=== PATIENT | female | born 1960 | race African-American/Black ===

== ENCOUNTER 2021-04-07 07:40 | Outpatient (CLI) | payer OTHER, SELFPAY ==
--- NOTE | ~2021-04-07 | DEXA_ITS ---
Bone Density Report Name: Concha Morrison Age: 60 Sex: Female Ethnicity: White Date of : 1960 Indication: osteopenia; height loss; cancer; Referring Provider: Sun Pinedo Study: Bone densitometry was performed. Exam Date: April 07, 2021 Accession number: [id number] Bone Density: Region BMD T-score Z-score Classification AP Spine (L1-L4) 1.088 0.4 2.0 Normal Femoral Neck (Left) 0.960 1.0 2.4 Normal Total Hip (Left) 1.080 1.1 2.2 Normal Total Hip Bilateral Avg 1.059 1.0 2.1 Normal Femoral Neck (Right) 0.890 0.4 1.8 Normal Total Hip (Right) 1.036 0.8 1.9 Normal World Health Organization criteria for BMD impression classify patients as: Normal (T-score at or above -1.0), Osteopenia (T-score between -1.0 and -2.5), or Osteoporosis (T-score at or below -2.5). 10-year Fracture Risk: FRAX not reported because: All T-scores for Spine Total, Hip Total, Femoral Neck at or above -1.0 Previous Exams: Region Exam Age BMD T-score BMD Change BMD Change Date g/cm2 vs Baseline vs Previous AP Spine(L1-L4) 04/07/2021 60 1.088 0.4 0.228(26.5%)# 0.219(25.3%)# 08/15/2011 50 0.868 -1.6 0.008(0.9%) 0.008(0.9%) 11/05/2008 48 0.860 -1.7 Total Hip(Left) 04/07/2021 60 1.080 1.1 0.269(33.1%)# 0.279(34.8%)# 08/15/2011 50 0.801 -1.2 -0.011(-1.3%) -0.011(-1.3%) 11/05/2008 48 0.812 -1.1 Total Hip(Right) 04/07/2021 60 1.036 0.8 0.223(27.4%)# 0.227(28.0%)# 08/15/2011 50 0.809 -1.1 -0.004(-0.5%) -0.004(-0.5%) 11/05/2008 48 0.813 -1.1 *Denotes significance at 95% confidence level, LSC for AP Spine = 0.022 g/cm2, LSC for Total Hip = 0.027 g/cm2 Clinical Information Provided by Patient: Has used the following medications: Vitamin D Has the following medical conditions: Cancer Patient maximum height was 64 Menopause Age: 48 Drinks caffeinated beverages Onset of menses at age 10 Number of children 2 Impression: The patient has normal bone mass. No significant bone loss was observed. Discussion: BONE DENSITY IS ABOVE THE MINIMUM DESIRABLE LEVEL AT ALL SKELETAL SITES TESTED. This patient?s bone mineral density is above the minimum desirable level (T-score -1.0 or better) at all sites measured. The patient should follow a healthful lifestyle (good nutrition with adequate calcium and vitamin D, and appropriate weight-bearing exercise). Follow-Up: Consider repeating this study in 5 years or sooner if there i
--- NOTE | ~2021-04-07 | MM_ITS ---
EXAMINATION: MM screening [facility] BI w keith HISTORY: Screening mammogram, history of right breast cancer TECHNIQUE: Craniocaudal and mediolateral oblique 3-D tomosynthesis images were obtained and synthetic 2-D images were generated. CAD analysis was submitted and interpreted. COMPARISON: 03/13/2019, 03/06/2019, 05/24/2017 BREAST PARENCHYMAL COMPOSITION: There are scattered areas of fibroglandular density. FINDINGS: There are changes of interval lumpectomy in the upper right breast. There is no evidence of suspicious mass, calcification, or architectural distortion to suggest malignancy in either breast. There has been no suspicious interval change. IMPRESSION: 1. Changes of interval lumpectomy of the right breast without mammographic evidence of malignancy. 2. Recommend routine screening mammography in one year. BI-RADS Category 2: Benign finding(s). Reviewed, dictated and finalized at location A. IMPRESSION: 1. Changes of interval lumpectomy of the right breast without mammographic evid ence of malignancy. 2. Recommend routine screening mammography in one year. BI-RADS Category 2: Benign finding(s).
== END 2021-04-07 07:41 | disposition home or self-care (01) ==
PROVIDERS: Visit Provider Obstetrics & Gynecology
DX: Z12.31 Encounter for screening mammogram for malignant neoplasm of breast (principal); Z78.0 Asymptomatic menopausal state
CPT/HCPCS: 77063; 77067; 77080

== ENCOUNTER 2025-05-14 12:14 | Outpatient (CLI) | payer MEDICARE, SELFPAY ==
--- NOTE | ~2025-05-14 | DEXA_ITS ---
Bone Density Report Name: HAL FORRESTER Age: 64 Sex: Female Ethnicity: White Date of : 1960 Indication: postmenopausal; screening for osteoporosis; height loss; Referring Provider: DIEGO, NEEL García Study: Bone densitometry was performed. Exam Date: May 14, 2025 Accession number: [id number] Bone Density: Region BMD T-score Z-score Classification AP Spine(L1-L4) 1.093 0.4 2.3 Normal Femoral Neck (Left) 0.887 0.3 1.9 Normal Total Hip (Left) 1.083 1.2 2.5 Normal Femoral Neck (Right) 0.902 0.5 2.1 Normal Total Hip (Right) 1.080 1.1 2.4 Normal Femoral Neck Mean 0.894 0.4 2.0 Normal Total Hip Mean 1.082 1.1 2.5 Normal World Health Organization criteria for BMD impression classify patients as: Normal (T-score at or above -1.0), Osteopenia (T-score between -1.0 and -2.5), or Osteoporosis (T-score at or below -2.5). 10-year Fracture Risk: FRAX not reported because: All T-scores for Spine Total, Hip Total, Femoral Neck at or above -1.0 Clinical Information Provided by Patient: Has used the following medications: Vitamin D, multi Patient maximum height was 64 Menopause Age: 48 No regular weight bearing exercise Drinks caffeinated beverages Onset of menses at age 10 Number of children 2 Impression: The patient has normal bone mass. Discussion: BONE DENSITY IS ABOVE THE MINIMUM DESIRABLE LEVEL AT ALL SKELETAL SITES TESTED. This patient?s bone mineral density is above the minimum desirable level (T-score -1.0 or better) at all sites measured. The patient should follow a healthful lifestyle (good nutrition with adequate calcium and vitamin D, and appropriate weight-bearing exercise). Follow-Up: Consider repeating this study in 5 years or sooner if there is some new clinical indication. Reported by: CARLOS on 05/14/2025 12:45:00 PM. Reviewed, dictated and finalized at location A.
--- OUTSIDE RECORDS SUMMARY | 2025-05-14 12:45 | XMS_ITS | Encounter Summary ---
Author Organization [facility] Address [address] [place] [address] Care Team Providers Care Tax Services Professional Name Role Phone Kyung Kim NP Primary Care Provider [phone] Encounter Details Date Type Department Care Team (Latest Contact Info) Description 05/07/2025 Scan HEALTH INFO SRVCS Scanned, Doc Med Group Social History Tobacco Use Types Packs/Day Years Used Date Smoking Tobacco: Never Passive Smoke Exposure: Past Smokeless Tobacco: Never Alcohol Use Standard Drinks/Week Comments Not Currently 0 (1 standard drink = 0.6 oz pur e alcohol) few times per year AUDIT-C Answer Date Recorded Q1: How often do you have a drink containing alc ohol? Monthly or less 02/23/2025 Q2: How many drinks containi ng alcohol do you have on a typical day when you are drinking? 1 or 2 02/23/2025 Q3: How often do you have si x or more drinks on one occasion? Never 02/23/2025 PHQ-2 Answer Date Recorded Patient Health Questionnaire-2 Score 0 02/23/2025 Comments No Sex and Gender Information Value Date Recorded Sex Assigned at Female 04/13/2025 9:00 AM CDT Legal Sex Female 8:03 PM CDT Gender Identity Female 04/13/2025 9:00 AM CDT Sexual Orientation Not on file documented as of this encounter Plan of Treatment Upcoming Encounters Date Type Department Care Team ( st Contact Info) Description 08/03/2025 8:00 AM CDT Office Visit [facility] Family Medicine [place] [address] [place], [place] [address] Kyung Kim, MEME [address] [place] [address] 03/02/2026 8:30 AM CDT Office Visit [facility] Family Medicine - [place] [address] [place] [address] Kyung Kim NP [address] [place] [address] documented as of this encounter Visit Diagnoses Not on filedocumented in this encounter Additional Health Concerns Assessment Noted Time PHQ-9 Depression Total Score: 0 02/24/20 25 6:06 PM CDT documented as of this encounter Care Teams Tax Services Professional Relationship Specialty Start Date End Date Kyung Kim NP [address] [place] [address] PCP - General NURSE PRACTITIONER 04/19/21 [facility] [address] [place] [address] GYNECOLOGY 02/22/25 documented as of this encounter
--- OUTSIDE RECORDS SUMMARY | 2025-05-14 12:45 | XMS_ITS | Clinical Summary ---
Author Organization [facility] Address [address] [place] [address] Care Team Providers Care Lsw Name Role Phone Anselmo Choi MD Unavailable Ramya Andrade PhD Unavailable Aft, Susie Gaspar MD PhD Unavailable [phone] Marta Everett JAIL GUARD Unavailable [phone] Sun Nino MD Unavailable [phone] Kyung Kim MD Primary Care Provider [phone] Allergies No known active allergies Medications aspirin 81 mg enteric coated tablet Take 1 tablet (81 mg total) by mouth daily Active multivitamin capsule Take 1 capsule by mouth daily Active Bacillus coagulans (PROBIOTIC, B. 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 05/25/2019 Cancer Staging:Pathologic stage from 06/26/2019:Stage 0(pTis (DCIS), pN0, cM0, G3, ER-, WA-, HER2: Not Assessed) - Signed by Anselmo Choi MD on 07/25/2019 Abnormal mammogram 04/02/2019 Encounters Date Type Department Care Team Description 05/04/2025 1:24 PM CDT - 05/04/2025 11:59 PM CDT Hospital Encounter [facility] - Breast Imaging [address] [place] [id number] Breast asymmetry Discharge Disposition: Discharge to home or self care 05/04/2025 1:24 PM CDT - 05/04/2025 11:59 PM CDT Hospital Encounter [facility] - Breast Imaging [address] [place] [address] Breast asymmetry Discharge Disposition: Discharge to home or self care 05/04/2025 Results Follow-Up [facility] [address] [place] [phone] Deborah Gallagher NP Diagnostic Mammogram Left W Abel, US Breast Left Limited 04/30/2025 Orders Only [facility] [address] [place] [phone] Deborah Gallagher NP Breast asymmetry (Primary Dx) 04/30/2025 Results Follow-Up [facility] [address] [place] [phone] Deborah Gallagher NP Screening Mammogram Bilateral W Abel 04/29/2025 10:00 AM CDT - 04/29/2025 11:59 PM CDT Hospital Encounter [facility] - Breast Imaging [address] [place] [phone] Screening mammogram for breast cancer; History of breast cancer; Encounter for screening mammogram for malignant neoplasm of breast Discharge Disposition: Discharge to home or self care 04/29/2025 9:45 AM CDT Office Visit [facility] [address] [place] [phone] Deborah Gallagher, MEME 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); History of breast cancer; Encounter for screening mammogram for malignant neoplasm of breast from Last 3 Months Immunizations Immunization Administration Dates Next Due Influenza, Quadrivalent, Neelam l Culture-based MDCK, Antibiotic Free, Intramuscular 10/10/2019 Influenza, Quadrivalent, Neelam l Culture-based MDCK, Preservative Free, Antibiotic Free, Intramuscular 07/27/2020 Influenza, Trivalent, Cell C ulture-based MDCK, Preservative Free, Antibiotic Free, Intramuscular 10/10/2019 Influenza, Unspecified 09/07/2022,09/07/2021 Moderna SARS-CoV-2 Monovalent Vaccination (12+ Y RS) 03/01/2021,02/01/2021 Pneumococcal Conjugate Pcv20 01/29/2024 Tdap 02/09/2016 ZOSTER Recombinant 05/30/2019,03/06/2019 Surgical History Surgery Date Site/Laterality Comments APPENDECTOMY 11/26/1980 - 11/25/1981 BREAST BIOPSY 04/28/2019 Right BREAST LUMPECTOMY 06/26/2019 Right Right breast grade 3 DCIS excised with negative margins. D&C FIRST TRIMESTER / TX INCOMPLETE / MISSED / SEPTIC / INDUCED N/A COLONOSCOPY Medical History Medical History Date Comments Overweight Diverticulitis of colon 2017 Right Breast cancer- DCIS 2019 DCIS History of radiation therapy 2019 RT DCIS BRCA1 negative BRCA2 negative Family History Medical History Relation Name Comments Diabetes Father Family history of diabetes mellitus - (Added by TW Conv) Lung cancer Father Family history of lung cancer - (Added by TW Conv) Breast cancer Mother Family history of malignant neoplasm of breast - (Added by TW Conv) Breast cancer Other 1 Family history of malignant neoplasm of breast - (Added by TW Conv) Diabetes Other 2 Family history of diabetes mellitus - (Added by TW Conv) Lung cancer Other 3 Family history of lung cancer - (Added by TW Conv) Breast cancer Paternal cousin Anesthesia problems Neg Hx Heart disease Neg Hx Stroke Neg Hx Relation Name Status Comments Father Mother Other 1 Other 2 Other 3 Paternal cousin Social History Tobacco Use Types Packs/Day Years Used Date Smoking Tobacco: Never Passive Smoke Exposure: Never Smokeless Tobacco: Never Tobacco Cessation:Counseling Given: Not Answered Alcohol Use Standard Drinks/Week Comments Not Currently 0 (1 standard drink = 0.6 oz pur e alcohol) Comments No Sex and Gender Information Value Date Recorded Sex Assigned at Not on file 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 Age of 1st live 19. Menopause at age 49. History of control pills for 1 year. No history of hormone replacement therapy. Last Filed Vital Signs Vital Sign Reading Time Taken Comments Blood Pressure 143/75 07/29/2024 9:57 AM CDT Pulse 57 07/29/2024 9:57 AM CDT Temperature 36.3 C (97.3 F) 07/29/2024 9:57 AM CDT Respiratory Rate 18 07/29/2024 9:57 AM CDT Oxygen Saturation 100% 07/29/2024 9:57 AM CDT Inhaled Oxygen Concentration - - Weight 100.5 kg (221 lb 9.6 oz) 04/29/2025 9:51 AM CDT Height 157.5 cm (5' 2.01) 04/29/2025 9:51 AM CD T Body Mass Index 40.52 04/29/2025 9:51 AM CDT Plan of Treatment Health Maintenance Due Date Last Done Comments Depression Screening 1960 Fall Risk Assessment 1960 Hepatitis C Screening 1960 Osteoporosis Screening-Bone Density Scan 1960 Hepatitis B Screening 1976 Well Visit 65+ 2023 Covid-19 Vaccine (3 - 2023-2 5 season) 2024 03/01/2021, 02/01/2021 Breast Cancer Screening-Mammogram 04/29/2026 04/29/2025, 04/25/2024, 04/24/2023, Additional history exists Colon Cancer Screening-Colonoscopy 06/12/2027 06/12/2017 DTaP/Tdap/Td Vaccine (3 - Td or Tdap) 09/23/2034 09/23/2024, 02/09/2016 Colon Cancer Screening-CT Colonography Discontinued 06/12/2017 Colon Cancer Screening-DNA Stool Discontinued 06/12/20 17 Colon Cancer Screening-FIT Discontinued 06/12/2017 Colon Cancer Screening-Sigmoidoscopy Discontinued 06/12/2017 Zoster Vaccine Completed 05/30/2019, 03/06/2019 Pneumococcal vaccine 65+ Completed 01/29/2024 Influenza Vaccine Completed 09/20/2024, , 09/07/2022, Additional history exists Medical Devices Implanted Type Area Product Development Intern Device Identifier Shelf Expiration Date Model / Serial / Lot Right Breast Biposy Marker Breast Procedures Procedure Name Priority Date/Time Associated Diagnosis Comments US BREAST LEFT LIMITED Schedule Routine, Read Routine (OP Routine) 05/04/2025 2:20 PM CDT Breast asymmetry DIAGNOSTIC MAMMOGRAM LEFT W ABEL Schedule Routine, Read Routine (OP Routine) 05/04/2025 2:12 PM CDT Breast asymmetry SCREENING MAMMOGRAM BILATERAL W ABEL Schedule Routine, Read Routine (OP Routine) 04/29/2025 10:42 AM CDT Screening mammogram for breast cancer COLONOSCOPY REPORT 06/12/2017 from Last 3 Months or Most Recently Relevant to Health Maintenance Results * US Breast Left Limited (05/04/2025 2:20 PM CDT) Anatomical Region Laterality Modality Breast Left Ultrasound 05/04/2025 2:37 PM CDT Impressions 05/04/2025 3:06 PM CDT LEFT breast focal asymmetry correlates with benign cysts. No evidence of malignancy in the LEFT breast. OVERALL FINAL ASSESSMENT: BI-RADS Category 2: Benign. RECOMMENDATION: Annual screening mammography is recommended. Dr. Graham discussed the above findings and recommendations with the patient, who expressed her understanding of the management plan. Dictated by: Gregory Guevara MD The radiology attending physician has personally reviewed this study, and had reviewed and/or edited this written report and agrees with it. Electronically signed by: Trish Graham M.D. Narrative 05/04/2025 3:06 PM CDT EXAMINATION: LEFT UNILATERAL DIGITAL DIAGNOSTIC MAMMOGRAM AND DIGITAL BREAST TOMOSYNTHESIS; LEFT BREAST SONOGRAM HISTORY: 64-year-old woman recalled for LEFT breast focal asymmetry. Prior RIGHT breast ductal carcinoma in situ status post breast conservation therapy in 2019. COMPARISON: Multiple priors, most recently screening mammogram 04/29/2025 TECHNIQUE: Full field digital mammographic views of the LEFT breast were performed, including computer aided detection (CAD) and digital breast tomosynthesis (DBT). Directed ultrasound evaluation of the LEFT breast was performed. BREAST PARENCHYMAL COMPOSITION: There are scattered areas of fibroglandular density. MAMMOGRAM FINDINGS: Again seen is a focal asymmetry in the LEFT upper outer breast at posterior depth adjacent to a previously characterized cyst. This partially effaces on spot compression view. This area appears similar to remote prior mammograms, such as 03/27/2022. SONOGRAM FINDINGS: Targeted ultrasound was performed of the LEFT breast at 2:00, 9 cm from the nipple. Correlating with the focal asymmetry on mammograms is a cluster of benign cysts. These are in close proximity to another benign cyst at 3:00, which is mammographically stable. Deborah Gallagher NP IMG MAMMO PROCEDURES Final Result * Diagnostic Mammogram Left W Abel (05/04/2025 2:12 PM CDT) Anatomical Region Laterality Modality Breast Left Mammography 05/04/2025 2:37 PM CDT Impressions 05/04/2025 3:06 PM CDT LEFT breast focal asymmetry correlates with benign cysts. No evidence of malignancy in the LEFT breast. OVERALL FINAL ASSESSMENT: BI-RADS Category 2: Benign. RECOMMENDATION: Annual screening mammography is recommended. Dr. Graham discussed the above findings and recommendations with the patient, who expressed her understanding of the management plan. Dictated by: Gregory Guevara MD The radiology attending physician has personally reviewed this study, and had reviewed and/or edited this written report and agrees with it. Electronically signed by: Trish Graham M.D. Narrative 05/04/2025 3:06 PM CDT EXAMINATION: LEFT UNILATERAL DIGITAL DIAGNOSTIC MAMMOGRAM AND DIGITAL BREAST TOMOSYNTHESIS; LEFT BREAST SONOGRAM HISTORY: 64-year-old woman recalled for LEFT breast focal asymmetry. Prior RIGHT breast ductal carcinoma in situ status post breast conservation therapy in 2019. COMPARISON: Multiple priors, most recently screening mammogram 04/29/2025 TECHNIQUE: Full field digital mammographic views of the LEFT breast were performed, including computer aided detection (CAD) and digital breast tomosynthesis (DBT). Directed ultrasound evaluation of the LEFT breast was performed. BREAST PARENCHYMAL COMPOSITION: There are scattered areas of fibroglandular density. MAMMOGRAM FINDINGS: Again seen is a focal asymmetry in the LEFT upper outer breast at posterior depth adjacent to a previously characterized cyst. This partially effaces on spot compression view. This area appears similar to remote prior mammograms, such as 03/27/2022. SONOGRAM FINDINGS: Targeted ultrasound was performed of the LEFT breast at 2:00, 9 cm from the nipple. Correlating with the focal asymmetry on mammograms is a cluster of benign cysts. These are in close proximity to another benign cyst at 3:00, which is mammographically stable. Deborah Gallagher NP IMG MAMMO PROCEDURES Final Result * (ABNORMAL) Screening Mammogram Bilateral W Abel (04/29/2025 10:42 AM CDT) Anatomical Region Laterality Modality Breast Bilateral Mammography Impressions 04/30/2025 9:09 AM CDT Left 1) Focal Asymmetry: Left breast focal asymmetry in the upper outer quadrant in the posterior depth. Assessment: 0 - Incomplete. Diagnostic mammogram with possible ultrasound is recommended. Right No evidence of malignancy. OVERALL BI-RADS FINAL ASSESSMENT: 0 - Incomplete: Needs Additional Imaging Evaluation RECOMMENDATIONS: Recommend left breast diagnostic mammogram with possible ultrasound. Narrative 04/30/2025 9:09 AM CDT EXAMINATION: Screening Mammogram Bilateral W Abel: 04/29/2025 COMPARISON: Relevant prior studies available at the time of interpretation were reviewed. Multiple prior mammograms dating back to 05/18/2015, most recent from 05/26/2024. Left breast ultrasound from 05/26/2024. TECHNIQUE: Mammography was performed with 2D and digital breast tomosynthesis (DBT) images. CAD was utilized. BREAST PARENCHYMAL COMPOSITION: There are scattered areas of fibroglandular density. FINDINGS: Left 1) Focal Asymmetry: There is a focal asymmetry seen in the upper outer quadrant of the left breast in the posterior depth. This finding needs additional imaging evaluation. Right 2) Post-Surgical Finding: There are post-surgical findings from a previous lumpectomy seen in the right breast. Compared to the previous study, there are no significant changes. There has been no interval development of a suspicious finding. This finding is benign. There is no suspicious mass, calcification, or architectural distortion. Deborah Gallagher NP IMG MAMMO PROCEDURES Final Result * COLONOSCOPY REPORT (06/12/2017) Anatomical Region Laterality Modality Other Provider Scanning GI PROCEDURE ORDERABLES Final Result from Last 3 Months or Most Recently Relevant to Health Maintenance Insurance [facility] MEDICARE ADVANTAGE [facility] MEDICARE Address: [address] [address] [place] [address] [facility]S [facility] MEDICARE ADVANTAGE [facility] MEDICARE Address: [id number] [place] [address] Care Teams Lsw Relationship Specialty Start Date End Date Kyung Kim MD [address] [place] [address] PCP - General Nurse Practitioner 03/27/22 Anselmo Choi MD [address] [place] [address] Radiation Oncologist Radiation Oncology 06/28/20 Ramya Andrade, PhD [address] [place] [address] Nurse Practitioner Radiation Oncology 06/28/20 Susie Cm MD PhD [address] [place] [address] Surgeon Surgical Oncology 06/28/20 Marta Everett CNS [address] [place] [address] Nurse Practitioner Certified Clinical Nurse Specialist 06/28/20 Sun Nino MD [address] [place] [address] Medical Oncologist/Emergency Management Specialist Hematology 06/28/20
--- OUTSIDE RECORDS SUMMARY | 2025-05-14 12:45 | XMS_ITS | Referral Summary ---
Author Organization [facility] Address [address] [place] [address] Care Team Providers Care Resaw Operator Name Role Phone Anselmo Choi MD Unavailable Ramya Andrade PhD Unavailable Aft, Susie Gaspar MD PhD Unavailable Marta Everett WAREHOUSE DELIVERY DRIVER Unavailable [phone] Sun Nino MD Unavailable Kyung Kim MD Primary Care Provider [phone] Encounters Date Type Department Care Team Description 05/04/2025 Results Follow-Up [facility] Surgery [address] [place] [phone] Deborah aGllagher NP Diagnostic Mammogram Left W Abel, US Breast Left Limited 05/04/2025 1:24 PM CDT - 05/04/2025 11:59 PM CDT Hospital Encounter [facility] - Breast Imaging [address] [place] [address] Breast asymmetry Discharge Disposition: Discharge to home or self care 05/04/2025 1:24 PM CDT - 05/04/2025 11:59 PM CDT Hospital Encounter [facility] - Breast Imaging [facility] [place], [place] 8 [place] [address] Breast asymmetry Discharge Disposition: Discharge to home or self care 04/30/2025 Orders Only [facility] Surgery [address] [place] [address] 8 [place] [address] Deborah Gallagher NP Breast asymmetry (Primary Dx) 04/30/2025 Results Follow-Up [facility] Surgery [address] [place] [address] 8 [place] [address] Deborah Gallagher NP Screening Mammogram Bilateral W Abel 04/29/2025 10:00 AM CDT - 04/29/2025 11:59 PM CDT Hospital Encounter [facility] - Breast Imaging [address] [place] [address] 8 [place] [address] Screening mammogram for breast cancer; History of breast cancer; Encounter for screening mammogram for malignant neoplasm of breast Discharge Disposition: Discharge to home or self care 04/29/2025 9:45 AM CDT Office Visit [facility] Surgery [address] [place] [phone] Deborah Gallagher NP 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); History of breast cancer; Encounter for screening mammogram for malignant neoplasm of breast from Last 3 Months Allergies No known active allergies Medications aspirin [...] 06/26/2019:Stage 0(pTis (DCIS), pN0, cM0, G3, ER-, [place]-, HER2: Not Assessed) - Signed by Anselmo Choi MD on 07/25/2019 Abnormal mammogram 04/02/2019 Immunizations Immunization Administration Dates Next Due Influenza, Quadrivalent, Neelam l Culture-based MDCK, Antibiotic Free, Intramuscular 10/10/2019 Influenza, Quadrivalent, Neelam l Culture-based MDCK, Preservative Free, Antibiotic Free, Intramuscular 07/27/2020 Influenza, Trivalent, Cell C ulture-based MDCK, Preservative Free, Antibiotic Free, Intramuscular 10/10/2019 Influenza, Unspecified 09/07/2022,09/07/2021 Moderna SARS-CoV-2 Monovalent Vaccination (12+ Y RS) 03/01/2021,02/01/2021 Pneumococcal Conjugate Pcv20 01/29/2024 Tdap 02/09/2016 ZOSTER Recombinant 05/30/2019,03/06/2019 Social History Tobacco Use Types Packs/Day Years Used Date Smoking Tobacco: Never Passive Smoke Exposure: Never Smokeless Tobacco: Never Tobacco Cessation:Counseling Given: Not Answered Alcohol Use Standard Drinks/Week Comments Not Currently 0 (1 standard drink = 0.6 oz pur e alcohol) Comments No Sex and Gender Information Value Date Recorded Sex Assigned at Not on file Legal Sex Female 2:37 AM COMPUTER PATTERNMAKER Gender Identity Female 07/22/2020 5:52 PM CDT Sexual Orientation Straight 05/24/2020 9: 43 AM CDT 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 us Deborah Gladysrossy Gallagher NP IMG MAMMO PROCEDURES Final Result [...] which is mammographically stable. Deborah Gallagher NP [facility] MAMMO PROCEDURES Final Result * (ABNORMAL) Screening [...] REPORT (06/12/2017) Anatomical Region Laterality Modality Other us Provider Scanning GI PROCEDURE ORDERABLES Final Result from Last 3 Months or Most Recently Relevant to Health Maintenance Insurance [facility] MEDICARE ADVANTAGE [facility] MEDICARE ADVANTAGE Care Teams Resaw Operator Relationship Specialty Start Date End Date Kyung Kim MD [address] [place] [address] PCP - General Nurse Practitioner 03/27/22 Anselmo Choi MD [address] [facility] [address] [address] [place] [address] Radiation Oncologist Radiation Oncology 06/28/20 Ramya Andrade, PhD [address] [place] [address] Nurse Practitioner Radiation Oncology 06/28/20 Susie Cm MD PhD [address] [place] [address] Surgeon Surgical Oncology 06/28/20 Marta Everett, WAREHOUSE DELIVERY DRIVER [address] [place] [address] Nurse Practitioner Certified Clinical Nurse Specialist 06/28/20 Sun Nino MD [address] [place] [address] Medical Oncologist/Wrapper Stitcher Hematology 06/28/20
--- OUTSIDE RECORDS SUMMARY | 2025-05-14 12:45 | XMS_ITS ---
Author Organization 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 Past Treatment and Therapy Plans No past plan information found. Radiation Treatments * Course C1 R BRS GA 2019 08/13/2019 - 09/03/2019 Treatment Period Energy Fraction Dose Fractions Total Dose Plans Planned R BREAST 08/13/2019 - 09/03/2019 266 16 / 4,256 Reference Points Delivered INMAN DPV 08/13/2019 - 09/03/2019 4,256
--- OUTSIDE RECORDS SUMMARY | 2025-05-14 12:45 | XMS_ITS | Encounter Summary ---
Author Organization [facility] Address [address] [place] [address] Care Team Providers Care Svp Chief Marketing Officer Name Role Phone Kyung Kim NP Primary Care Provider [phone] Reason for Visit * Reason Onset Date Comments Medication 05/14/2025 Encounter Details Date Type Department Care Team (Late st Contact Info) Description 05/14/2025 Telephone [facility] Medical [facility] Family Medicine [facility] [address] [phone] Kyung Kim NP [address] [address] Medication Social History Tobacco Use Types Packs/Day Years [...] on file documented as of this encounter Progress Notes * Sofi Shea MA - 05/14/2025 11:03 AM CDT Patient dropped off a note with PA phone number [phone]. Note exemption notice. I called the patient and informed her to call her insurance company and ask if they cover and GLP-1for obesity or SHAUN. She stated she will give them a call and call me back with the information. documented in this encounter Plan of Treatment Upcoming Encounters Date Type Department Care Team (Late st Contact Info) Description 08/03/2025 8:00 AM CDT Office Visit [facility] [address] [facility] [address] [place] [address] Kyung Kim NP [address] [place] [address] 03/02/2026 8:30 AM CDT Office Visit [facility] [address] [facility] [address] [place] [address] Kyung Kim NP [address] [place] [address] documented as of this encounter Visit Diagnoses Not on filedocumented in this encounter Additional Health Concerns Assessment Noted Time PHQ-9 Depression Total Score: 0 02/24/20 25 6:06 PM CDT documented as of this encounter Care Teams Svp Chief Marketing Officer Relationship Specialty Start Date End Date Kyung Kim NP [address] [place] [address] PCP - General NURSE PRACTITIONER 04/19/21 [facility] [address] [place] [address] GYNECOLOGY 02/22/25 documented as of this encounter
--- OUTSIDE RECORDS SUMMARY | 2025-05-14 12:45 | XMS_ITS | Clinical Summary ---
Author Organization [facility] Address [address] [place] [address] Care Team Providers Care Supervisor Pressing Department Name Role Phone Kyung Kim NP Primary Care Provider [phone] Allergies No known active allergies Medications Multiple Vitamins-Mineral s (ALIVE ONCE DAILY WOMENS 50+) Tab Take 1 tablet by mouth daily. Active probiotic capsule Take 1 capsule by mouth daily. Active aspirin EC 81 MG tablet Take 1 tablet (81 mg total) by mouth daily. Active BIOTIN 5000 OR Take 1 tablet by mouth daily. Active vitamin D2, ergocalciferol, (DRISDOL) 1.25 mg capsule Take 1 capsule (1.25 mg total) by mouth once a week. 5 Active hydroCHLOROthiaz roby (MICROZIDE) 12.5 MG capsuleIndicatio ns:Hypertension, unspecified type Take 1 capsule (12.5 mg total) by mouth every morning. 90 capsule 1 5 Active Tamiko, Morinda citrifolia, (TAMIKO JUICE OR) Take 30 mg by mouth daily. 05/11/20 25 Discontinu ed(Patient /family declined) NON FORMULARY Take 20 mLs by mouth daily. Hemo Him Liquid 05/11/20 Discontinu ed(Patient /family declined) Active Problems Problem Noted Date Diagnosed Date SHAUN (obstructive sleep apnea) 05/11/2025 Overview (05/11/2025): Was found to have mild SHAUN on her home sleep study. Her O2 did drop as low at 78% during her study. Since pt reports a lot of daytime fatigue and just started medication for her BP I recommended she try treatment with a CPAP while also working on weight loss. Assessment & Plan (05/11/2025 12:25 PM CDT): Will begin CPAP in near future. Getting better sleep as well will hopefully help with her energy to allow her to work out more as she has felt fatigued and not able to push herself as much at the gym and better sleep to gas fitter helper in weight loss. Hypertension 04/13/2025 Overview (05/11/2025): Started on 12.5mg of HCTZ at her last office visit and pt is tolerating well. Her bp's have been well controlled at home with use. Denies side effects with use. Denies chest pain, palpitations, shortness of breath, dizziness, lightheadedness.Denies any orthopnea or PND. Assessment & Plan (05/11/2025 12:20 PM CDT): BP stable. No changes needed at this time. Goal for BP to stay below 140/90. Encourage lifestyle modifications to include healthy eating, decrease salt and caffeine in diet, routine exercise, and weight loss. Assessment & Plan (04/13/2025 9:35 AM CDT): Shared decision making due to her blood pressure running routinely higher than 140/90 will begin med management with diet lifestyle changes as well. Patient also notes daytime fatigue so we will rule out obstructive sleep apnea as well. Discussed amlodipine and hydrochlorothiazide. We agreed on hydrochlorothiazide. Discussed with patient how to take and side effects. Goal for BP to stay below 140/90. Encourage lifestyle modifications to include healthy eating, decrease salt and caffeine in diet, routine exercise, and weight loss. Patient to follow-up in 1 month for BP check and also we will check a BMP. Will send patient a home BP log so she can monitor at home and check twice a day morning and night. Fatigue 04/13/2025 Overview (04/13/2025): Notes chronic fatigue but can be multifactorial. Does report snoring as well. Patient is also overweight. Denies any known apnea. Denies any morning headaches or dry mouth. Recently had labs last month and her TSH was in normal range and patient does have vitamin D deficiency but not severe. She is on vitamin D replacement at this time. Resume following healthy well-balanced diet and staying active. Continue to work on weight loss. Assessment & Plan (04/13/2025 9:32 AM CDT): Due to patient having daytime fatigue, hypertension, overweight and snoring at night we will obtain a home sleep study to rule out obstructive sleep apnea. The patient should maintain good sleep hygiene techniques, maintain a consistent sleep/wake schedule with adequate hours of sleep, and avoid hazardous activities when sleepy. The patient should be cautioned about factors that may potentially exacerbate snoring and sleep-related problems, such as EQUITIES ANALYST depressants, especially at bedtime. Obesity (BMI 30-39.9) 04/13/2025 Overview (05/11/2025): Struggling with weight loss.She is involved in a weight loss program at the [facility]. Is trying to stay around 1500 calorie per day. Has not been tracking as much recently. She is interested in med management as well to help her lose weight. Assessment & Plan (05/11/2025 12:23 PM CDT): Recommend consuming half body weight of protein per day, increasing fiber in diet as well. Increasing water in diet, Work on limited processed food, sugar, and limit carbohydrates. Increase fresh fruit and whole fresh vegetables in diet. I provided pt a printout to review and she is also going to call her insurance to find out if they approve weight loss medications or not. If not she would be interested to begin Tirzepatide vials and she will follow up to discuss more once she finds out. Assessment & Plan (04/13/2025 9:37 AM CDT): Encourage diet and lifestyle changes to assist with weight loss. 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 Screening for colon cancer 03/13/2024 0 03/17/2024 Screening for colon cancer 03/13/2024 0 04/07/2024 Encounters Date Type Department Care Team Description 05/14/[address] [place] [address] Kyung Kim NP Medication 05/13/2025 Results Follow-Up [address] [place] [address] Kyung Kim NP BASIC METABOLIC PANEL 05/11/2025 11:20 AM CDT Office Visit [address] [place] [address] Kyung Kim NP Hypertension (Patient presents for a 4 week follow up HTN ) 05/11/2025 Travel 05/08/2025 Scan [facility] Scanned, [facility] 05/07/2025 Scan [facility] Scanned, Doc [facility] 05/05/2025 Scan [facility] Scanned, [facility] 05/05/[address] [place] [address] Kyung Kim NP Lab Results 05/04/2025 Scan [facility] Scanned, [facility] Mammogram (SCAN); Ultrasound (SCAN) 05/04/[address] [place] [address] Kyung Kim NP Sleep Study (Snap sleep study results) 04/29/2025 Scan [facility] Scanned, [facility] Mammogram (SCAN) 04/17/2025 Scan [facility] Scanned, [facility] Sleep Study (SCAN); Procedure (SCAN) 04/16/2025 Scan [facility] Scanned, Doc [facility] 04/14/2025 Scan [facility] Scanned, Doc [facility] 04/13/2025 9:00 AM CDT Office Visit [address] [place] [address] Kyung Kim NP Blood Pressure (Patient presents with c/o elevated blood pressure) 04/13/2025 Scan [facility] Scanned, Doc [facility] 04/13/[address] [place], [place] [address] Kyung Kim NP Medication 04/13/2025 Travel 02/24/2025 10:30 AM CDT Office Visit [address] [place], [place] [phone] Kyung Kim NP Medicare Wellness (Patient presents today for their Medicare Annual Wellness Visit.) 02/24/2025 Telephone [place] [phone] [facility] [address] [place], [place] [address] Kyung Kim NP Health Maintenance Follow Up (Zinc Supplement and A1C) 02/24/2025 Travel from Last 3 Months Immunizations Immunization Administration Dates Next Due Arexvy Respiratory Syncytial Virus (RSV, adjuvanted) 0.5 mL, PF 09/23/2024 FLUAD (IIV, Trivalent, 0.5 M L Pre-filled Syringe) 09/20/2024 Influenza Adult (Generic) 09/10/2023,,09/07/2021,2019,10/10/2019 Pneumococcal (Prevnar 20) 01/29/2024 Shingrix 05/30/2019,03/06/2019 Tdap (Generic) 09/23/2024,02/09/2016 Family History Medical History Relation Comments Drug Abuse Brother [address] stew rios Drug Abuse Brother [address] stew rios Diabetes Father Lung cancer Lung Cancer Father Breast Cancer Mother Cancer Mother at 4 5 years old from breast cancer Relation Status Comments Brother 1 Brother 2 Father Mother Social History Tobacco Use Types Packs/Day Years Used Date Smoking Tobacco: Never Passive Smoke Exposure: Past Smokeless Tobacco: Never Tobacco Cessation:Counseling Given: No Alcohol Use Standard Drinks/Week Comments Not Currently [...] AM CDT Sexual Orientation Not on file Last Filed Vital Signs Vital Sign Reading Time Taken Comments Blood Pressure 128/70 05/11/2025 11:34 AM CDT Pulse 64 05/11/2025 11:34 AM CDT Temperature 36.8 C (98.2 F) 05/11/2025 11:34 AM CDT Respiratory Rate 16 05/11/2025 11:3 4 AM CDT Oxygen Saturation 100% 05/11/2025 11: 34 AM CDT Inhaled Oxygen Concentration - - Weight 102.2 kg (225 lb 3.2 oz) 025 11:34 AM CDT Height 160 cm (5' 3) 05/11/2025 11:34 AM CDT Body Mass Index 39.89 05/11/2025 11:34 AM CDT Plan of Treatment Upcoming Encounters Date Type Department Care Team (Late st Contact Info) Description 08/03/2025 8:00 AM CDT Office Visit [facility] Medical Group Family Medicine - [place] [address] [facility] [address] [place] [phone] Kyung Kim NP [address] [place], [place] [phone] 03/02/2026 8:30 AM CDT Office Visit [facility] Medical Group Family Medicine - [place] [address] [facility] [address] [place] [address] Kyung Kim NP [address] [place] [address] Health Maintenance Due Date Last Done Comments COVID-19 Vaccine ( season) 2025 09/20/2024, 09/10/2023, 09/25/2022, Additional history exists Annual Medicare Wellness Visit 02/25/2026 02/24/2025 Mammogram Screening 05/04/2027 05/04/2025, 05/04/2025, 04/29/2025, Additional history exists Colorectal Cancer Screening Colonoscopy (10 Years) 04/14/2031 04/14/2024, 04/14/2024, 03/19/2019 DTaP, Tdap and Td Vaccines (3 - Td or Tdap) 09/23/2034 09/23/2024, 02/09/2016 Zoster Vaccines Completed 05/30/2019, 03/06/2019 Dexa Scan (General) Completed 04/07/2021 Hepatitis C Completed 01/29/2024 Pneumococcal Vaccine: 50+ Years Completed 01/29/2024 RSV Immunization or 60+ Years Completed 09/23/2024 PHQ-2 (Physician [place]) Completed 02/23/2025 Meningococcal B Vaccine Aged Out No l onger eligible based on patient's age to complete this topic Meningococcal Vaccine Aged Out No saumya maude eligible based on patient's age to complete this topic RSV Immunizations Under 20 Months Aged Out No longer eligible based on patient's age to complete this topic Procedures Procedure Name Priority Date/Time Associated Diagnosis Comments COLLECTION VENOUS BLOOD VENIPUNCTURE Routine 05/11/2025 12:30 PM CDT Hypertension, unspecified type BASIC METABOLIC PANEL Routine 05/11/2025 12:17 PM CDT Hypertension, unspecified type MAMMOGRAM GENERIC (SCAN ORDER) 05/04/2025 ULTRASOUND GENERIC (SCAN ORDER) 05/04/2025 MAMMOGRAM GENERIC (SCAN ORDER) 04/29/2025 SLEEP STUDY GENERIC (SCAN ORDER) 04/17/2025 PULMONARY GENERIC 04/17/2025 PULMONARY GENERIC 04/17/2025 COLONOSCOPY Routine 04/14/2024 1:42 PM CDT HEPATITIS C ANTIBODY Routine 01/29/2024 10:50 AM CERTIFIED CAREGIVER Need for hepatitis C screening test BONE DENSITY GENERIC (SCAN ORDER) Routine 04/07/2021 12:00 AM CDT from Last 3 Months or Most Recently Relevant to Health Maintenance Results * (ABNORMAL) BASIC METABOLIC PANEL (05/11/2025 12:17 PM CDT) [facility] SODIUM S/P/B 139 136 - 145 MMOL/L 05/11/2025 8:31 PM CDT [facility] POTASSIUM S/P/B 4.4 3.5 - 5.1 MMOL/L 05/11/2025 8:31 PM CDT -[facility] CHLORIDE S/P/B 103 98 - 107 MMOL/L 05/11/2025 8:31 PM CDT -[facility] CO2 26.4 21 - 32 MMOL/L 05/11/2025 8:31 PM CDT -[facility] GLUCOSE 93 70 - 99 MG/DL 05/11/2025 8:31 PM CDT -[facility] BUN 21(H) 7 - 18 MG/DL 05/11/2025 8:31 PM CDT -[facility] CREATININE S/P/B 0.67 0.55 - 1.02 MG/DL 05/11/2025 8:31 PM CDT -[facility] CALCIUM S/P/B 9.2 8.4 - 10.5 MG/DL 05/11/2025 8:31 PM CDT [facility] ANION GAP 9.6 5 - 15 MMOL/L 05/11/2025 8:31 PM CDT [facility] Comment:REFERENCE RANGE NOT ESTABLISHED OSMOLALITY (CALC) 291 MOSM/KG 025 8:31 PM CDT [facility] Comment:REFERENCE RANGE NOT ESTABLISHED GFR ESTIMATE >90 >90 ML/MIN/1. 73 M2 05/11/2025 8:31 PM CDT [facility] GFR NOTES GFR REFERENCE S: 05/11/2025 8:31 PM CDT [facility] Comment: THE ESTIMATED GFR IS CALCULATED USING THE 2020 CKD-EPI EQUATION. THE FOLLOWING CATEGORIES FOR GRADING RENAL FUNCTION ARE RECOMMENDED BY THE INTERNATIONAL SOCIETY OF NEPHROLOGY (KDIGO 2012 CLINICAL PRACTICE GUIDELINE). G1,NORMAL OR HIGH: >89 ml/min/1.73 m2 G2,MILDLY DECREASED: 60-89 ml/min/1.73 m2 G3A,MILDLY TO MODERATELY DECREASED: 45-59 ml/min/1.73 m2 G3B,MODERATELY TO SEVERELY DECREASED: 30-44 ml/min/1.73 m2 G4,SEVERELY DECREASED: 15-29 ml/min/1.73 m2 G5,KIDNEY FAILURE: <15 ml/min/1.73 m2 05/11/2025 12:1 7 PM CDT Kyung Kim P[facility] Final Res ult -[facility] [address] [place] [address], [place] [phone] * MAMMOGRAM GENERIC (SCAN ORDER) (05/04/2025) Only the most recent of2 resultswithin the time period is included. Anatomical Region Laterality Modality Other 05/04/2025 us [facility] Scanned SCANNING Final Resu lt * ULTRASOUND GENERIC (SCAN ORDER) (05/04/2025) Anatomical Region Laterality Modality Other 05/04/2025 us [facility] Scanned SCANNING Final Resu lt * PULMONARY GENERIC (04/17/2025) 04/17/2025 us [facility] Scanned SCANNING Final Resu lt * PULMONARY GENERIC (04/17/2025) 04/17/2025 us [facility] Scanned SCANNING Final Resu lt * SLEEP STUDY GENERIC (SCAN ORDER) (04/17/2025) 04/17/2025 us [facility] Scanned SCANNING Final Resu lt * HEPATITIS C ANTIBODY (01/29/2024 10:50 AM CERTIFIED CAREGIVER) HEPATITIS C AB NON-REACTI VE NON-REACT RAJIV 01/29/2024 7:[address] [facility] Comment: ANTIBODIES TO HCV NOT DETECTED. DOES NOT EXCLUDE THE POSSIBILITY OF EXPOSURE TO HCV. 01/29/2024 10:5 0 AM CERTIFIED CAREGIVER us Kyung Kim NP LABORATORY Final Res ult [facility] [address] [place] [address], [id number] * BONE DENSITY (04/07/2021 12:00 AM CDT) Anatomical Region Laterality Modality Other 04/07/2021 us Documents Scanned SCANNING Final Result * COLONOSCOPY GENERIC (03/19/2019) 03/19/2019 us Doc [facility] Scanned SCANNING Final Resu lt from Last 3 Months or Most Recently Relevant to Health Maintenance Insurance [facility] Care Teams Supervisor Pressing Department Relationship Specialty Start Date End Date Kyung Kim NP [address] [place] [address] PCP - General NURSE PRACTITIONER 04/19/21 [facility] [address] [place] [address] GYNECOLOGY 02/22/25
--- OUTSIDE RECORDS SUMMARY | 2025-05-14 12:45 | XMS_ITS | Clinical Summary ---
Author Organization [facility] Address [address] [place] [address] Care Team Providers Care Manufacturing Engineer Paint Name Role Phone Marta Everett APRN-[facility] Primary Care Provider U navailable Source Comments [facility],non-owned Affiliates and Associated Physician Practices is amultiple site organization consisting of ambulatory clinics and hospital sitesin [place], [place], [place]. This disclosure is being madepursuant to the Care Everywhere program and may not contain all information available regarding this patient. Last updated 18.[facility] [employer] Allergies No known active allergies Family History Medical History Relation Name Comments Cancer - Breast Mother Cancer - Breast Other cousin Relation Name Status Comments Mother Other cousin Alive Social History Tobacco Use Types Packs/Day Years Used Date Smoking Tobacco: Never Assessed Comments Unknown Sex and Gender Information Value Date Recorded Sex Assigned at Not on file Legal Sex Female 2:23 PM CLOTH HAND Gender Identity Not on file Sexual Orientation Not on file Plan of Treatment Health Maintenance Due Date Last Done Comments BONE DENSITY TESTING 1960 COLOGUARD (AGES 45-75) - COL ON CA SCREENING 1960 COLON MONITORING 1960 COLONOSCOPY - COLON CA SCREENING 1960 CT COLONOGRAPHY - COLON CA SCREENING 1960 Colorectal Cancer Screening 1960 FIT - COLON CA SCREENING 1960 FLEX SIG - COLON CA SCREENING 1960 LIPID TESTING 1960 HEPATITIS C SCREENING 10/03/1976 DTAP/TDAP/TD VACCINES (1 - Tdap) 1977 PNEUMOCOCCAL VACCINE 50+ (1 of 1 - PCV) 2008 ZOSTER VACCINE (1 of 2) 2008 MAMMOGRAM 05/31/2022 05/31/2020 COVID-19 VACCINE (1 - 2023-2 5 season) 2024 DEPRESSION SCREENING 11/26/2024 INFLUENZA VACCINE (Season Ended) 2025 Respiratory Syncytial Virus (RSV) Vaccine Pt: or over 60 yrs (1 - 1-dose 75+ series) 2033 HEPATITIS B VACCINE Aged Out No longe r eligible based on patient's age to complete this topic HIB VACCINE Aged Out No longer eligi ble based on patient's age to complete this topic HPV VACCINE Aged Out No longer eligi ble based on patient's age to complete this topic MENINGOCOCCAL (Group B) VACC INE SHARED DECISION-MAKING Aged Out No longer eligibl e based on patient's age to complete this topic MENINGOCOCCAL GROUPS A/C/Y/W VACCINE Aged Out No longer eligible b ased on patient's age to complete this topic Procedures Procedure Name Priority Date/Time Associated Diagnosis Comments MAMMO BILAT DIAGNOSTIC Routine 05/31/2020 8:33 AM CDT Personal history of breast cancer from Last 3 Months or Most Recently Relevant to Health Maintenance Results * MARYA DIAG DIRECT DIG IMAGE BILATERAL G0204 (05/31/2020 8:33 AM CDT) Anatomical Region Laterality Modality Breast Bilateral Mammography 05/31/2020 8:38 AM CDT Impressions 05/31/2020 9:06 AM CDT No evidence of malignancy in either breast. ASSESSMENT: BIRADS Category 2: Benign finding(s). RECOMMENDATION: Annual bilateral diagnostic mammography. Findings and recommendation were discussed with the patient by Dr. Edgar. Result letter not given to the patient due to COVID precautions. Thank you for allowing us to participate in the care of your patient. [facility] [employer] utilizes [employer] as a reminder system to notify patients of their next recommended mammogram. *Reading Radiologist: Ramya Edgar on 05/31/2020 at 9:06 AM Narrative 05/31/2020 9:06 AM CDT EXAMINATION: Digital bilateral diagnostic mammogram on05/31/2020 8:38 AM. Low-dose digital breast tomosynthesis examination was performed with synthetic 2D and 3D acquisitions. Computer assisted detection was utilized. PRIOR: Prior mammograms performed at [facility] dated 03/13/2019 (right diagnostic mammogram) and screening mammograms dated 03/06/2019, 05/24/2017, 05/19/2016, 05/18/2015, 06/03/2013. Prior imaging not available from [facility]. 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 She complains of ongoing tenderness throughout the subareolar and lower right breast. BREAST PARENCHYMAL DENSITY: There are scattered areas of fibroglandular density. FINDINGS: There are now posttreatment changes in the right breast. There are no residual calcifications in the upper central posterior right breast. No suspicious masses, areas of architectural distortion or microcalcifications are evident on synthetic 2D or tomosynthesis images. us Ramya Edgar MD MAMMO ORDERABLES Final Resul t from Last 3 Months or Most Recently Relevant to Health Maintenance Insurance * Guarantor: HAL MAYORGA Account Type Relation to Patient Date of Phone Billing Address Personal/Family 1960 [address] [id number] Care Teams Manufacturing Engineer Paint Relationship Specialty Start Date End Date Marta Everett APRN-[employer] PCP - General Nurse Practitioner 05/31/20
--- OUTSIDE RECORDS SUMMARY | 2025-05-14 12:45 | XMS_ITS | Encounter Summary ---
Author Organization [facility] Address [address] [place] [id number] Care Team Providers Care Consumer Electronic Retail Specialist Name Role Phone Kyung Kim NP Primary Care Provider [phone] Encounter Details Date Type Department Care Team (Late st Contact Info) Description 05/13/2025 Results Follow-Up [facility] - [place] [address] [place] [id number] Kyung Kim NP [address] [place] [address] BASIC METABOLIC PANEL Social History Tobacco Use Types Packs/Day Years [...] Description 08/03/2025 8:00 AM CDT Office Visit [facility] [place] [address] [place] [address] Kyung Kim NP [address] [place] [address] 03/02/2026 8:30 AM CDT Office Visit [facility] [place] [address] [place] [address] Kyung Kim NP [address] [place] [address] documented as of this encounter Visit Diagnoses Not on filedocumented in this encounter Additional Health Concerns Assessment Noted Time PHQ-9 Depression Total Score: 0 02/24/20 25 6:06 PM CDT documented as of this encounter Care Teams Consumer Electronic Retail Specialist Relationship Specialty Start Date End Date Kyung Kim NP [address] [place] [address] PCP - General NURSE PRACTITIONER 04/19/21 [facility] [address] [place] [address] GYNECOLOGY 02/22/25 documented as of this encounter
--- OUTSIDE RECORDS SUMMARY | 2025-05-14 12:45 | XMS_ITS | Encounter Summary ---
Author Organization [facility] Address [address] [facility] [address] [place] [address] Phone Care Team Providers Care Tail Edger Name Role Phone Anselmo Choi MD Unavailable Ramya Andrade PhD Unavailable Aft, Susie Gaspar MD PhD Unavailable Marta Everett [facility] Unavailable Sun Nino MD Unavailable Kyung Kim MD Primary Care Provider [phone] Encounter Details Date Type Department Care Team (Late st Contact Info) Description 05/04/2025 Results Follow-Up [facility] Surgery [address] [facility] [address] [place] [address] Deborah Gallagher NP [address] [facility] [id number] [place] [address] Diagnostic Mammogram Left W Abel, US Breast Left Limited Social History Tobacco Use Types Packs/Day Years Used Date Smoking Tobacco: Never Passive Smoke Exposure: Never Smokeless Tobacco: Never Alcohol Use Standard Drinks/Week Comments Not Currently 0 (1 standard drink = 0.6 oz pur e alcohol) Comments No Sex and Gender Information Value Date Recorded Sex Assigned at Not on file Legal Sex Female 2:37 AM MEDICAL RECORDS SECRETARY Gender Identity Female 07/22/2020 5:52 PM CDT Sexual Orientation Straight 05/24/2020 9: 43 AM CDT 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 Not on file Not on file documented as of this encounter Plan of Treatment Not on file documented as of this encounter Visit Diagnoses Not on filedocumented in this encounter Care Teams Tail Edger Relationship Specialty Start Date End Date Kyung Kim MD [address] [place] [address] PCP - General Nurse Practitioner 03/27/22 Anselmo Choi MD [address] [place] [address] Radiation Oncologist Radiation Oncology 06/28/20 Ramya Andrade, PhD [address] [place] [address] Nurse Practitioner Radiation Oncology 06/28/20 Susie Cm MD PhD [address] [place] [address] Surgeon Surgical Oncology 06/28/20 Marta Everett, SALES SUPPORT ADMINISTRATOR [address] [place] [address] Nurse Practitioner Certified Clinical Nurse Specialist 06/28/20 Sun Nino MD [address] [place] [address] Medical Oncologist/Hospital Staff Pharmacist Hematology 06/28/20 documented as of this encounter
--- OUTSIDE RECORDS SUMMARY | 2025-05-14 12:45 | XMS_ITS | Data Portability ---
Author Organization [facility] Address [address] [place] [address] Care Team Providers Care Delivery Assistant Name Role Phone YONATHAN SANTIZO Primary Care Provider Assessment Encounter Date Assessment Date Assessment LastModified by Organization Details LastModified Time 02/28/2021 02/28/2021 healthy female exam/menopause patient declines std testing pap due next year mammogram per [facility] colonoscopy due 2023 dexa ordered and encouraged UA and culture for urinary sx- addendum- pt did not leave sample. discussed medication for urgency if neg UTI. Pt does not want at this time. Encouraged weight bearing exercise and 1500mg daily of Calcium with Vitamin D FU 1 year or prn [email or web address] Not available 02/28/2021 16:56:22 06/05/2022 06/05/2022 Annual gynecological exam performed. Patient will come back in a year unless there are new symptoms. Not available 06/05/2022 09:28:54 06/08/2023 06/08/2023 Annual gynecological exam performed. Patient will come back in a year unless there are new symptoms. Not available 06/08/2023 12:24:16 03/09/2025 03/09/2025 Annual gynecological exam performed. Patient will come back in a year unless there are new symptoms. [email or web address] Not available 03/09/2025 09:21:36 Plan of Treatment Reminders Order Date Submit Date Provider Last Modified By Organization Details Last Modified Time Details Appointments None recorded. Lab HbA1c (hemoglobin A1c), blood 2024 025 [facility] (Lab), [address], [place], [address], 5 04:52:19 TSH, serum or plasma 2024 025 [facility] (Lab), [address], [place], [address], 5 04:52:19 lipid panel, blood 2024 025 [facility] (Lab), [address], [place], [address], 5 04:52:19 25-hydroxyv itamin D2 + 25-hydroxyv itamin D3, QN, serum or plasma 2024 025 [facility] (Lab), [address], [place], [address], 5 04:52:19 Referral None recorded. Procedures None recorded. Surgeries None recorded. Imaging DEXA, axial skeleton + vertebral fracture assessment 2024 025 [email or web address] [address] [place] [address] [facility], [address], [place] [address], [place], [address], 5 10:57:12 Medication Orders None recorded. Patient TargetsNo targets recorded. Patient InstructionsNo instructions recorded. Reason for Referral None Reported. Results Created Date Observation Date Name Description Value Unit Range Abnormal Flag Note LastModifiedBy Organization Detail LastModifiedTime 06/05/20 22 06/05/2022 IMAGE GUIDE D PAP AND HPV REGAR DLESS image guided Pap, HPV regardless of Pap result SEE RESULT S BELOW CASE REPOR T: Cytol ogy Gynec ologi shira Repor t Case: [id number] Autho arjun g Provi zarina: Marlen Lambert MD Colle cted: 06/05 1013 Order ing Locat ion: [place] Patho log[facility] Recei kayden: 06/06 0118 First Scree n: Anmol celestin, Moham ed, CT Rescr een: Carolina Shea, CT Speci men: Scree mian Pap - Image d, Cervi x STATE MENT OF ADEQU ACY: Satis facto ry for evalu ation Trans forma tion zone compo nent absen t The absen ce of an endoc ervic al compo nent was confi rmed by an addit ional tosha cortes. FINAL DIAGN OSIS: Negat kenney for Intra epith elial Lesio n or Devika rodrigues (NIL) . Elect hollis reddy travis d by Carolina Shea, CT on 2021 at 7:22 AM ----- ----- ----- ----- ----- ----- ----- ----- ----- ----- ----- ----- ----- ----- ----- ----- ----- ---- HPV RESUL TS: HPV mRNA E6/E7 : No HPV mRNA Detec vasiliy NOTE: This high risk HPV mRNA assay detec ts fourt een high- risk HPV types (16, 18, 31, 33, 35, 39, 45, 51, 52, 56, 58, 59, 66, 68) witho ut diffe renti ation . COMME NT: Note: This speci men was revie wed by a Cytot echno logis t and/o r Patho logis t (as indic ated in this repor t) after evalu ation using the Thinp rep Imagi ng Syste m. CLINI SHIRA INFOR MATIO N: Menst rual Statu s: LMP (if appli cable ): Clini shira Histo ry/Pr eviou s Pap: Type of Neopl darien (if appli cable ): Signi fican t Clini shira Findi ngs: Other Histo ry: Hormo unique (if appli cable ): PAP EDUCA BROOKE L NOTE: The Pap Test is a scree mian test with an inher ent false negat kenney rate. Liqui d-bas ed sampl ing may decre ase, but will not elimi alfredito, false negat kenney resul ts. A negat kenney resul t does not precl ude the prese nce and/o r devel opmen t of disea se, since the prese nce of abnor mal cells in the sampl e depen ds on the locat ion of the lesio n and sampl ing techn ique. Krunal nued regul ar scree mian is the best metho d of cance r preve ntion . If repor vasiliy cytol ogic findi ng do not corre late with physi shira and/o r histo rical findi ngs, furth er inves tigat ion is recom agustín d, as clini marimarjaime butts nted. Not Available [facility] [address], [place], [address], 06/09/2022 08:24:37 06/08/20 23 06/08/2023 IMAGE GUIDE D PAP AND HPV REGAR DLESS image guided Pap, HPV regardless of Pap result SEE RESULT S BELOW CASE REPOR T: Cytol ogy Gynec ologi shira Repor t Case: [id number] Autho arjun reveles Provi zarina: iMk Rodríguez Colle cted: 06/08 1335 [employer] Order ing Locat ion: [place] Patho [place]y Recei kayden: 06/09 0137 First Scree n: Darrel Madrid am, CT Speci men: Tosha pappas Pap - Image d, Cervi x STATE MENT OF ADEQU ACY: Satis facto ry for evalu ation Trans forma tion zone compo nent prese nt FINAL DIAGN OSIS: Negat kenney for Intra epith elial Nora lugo or Devika rodrigues (NIL) . Rajeev reddy travis d by Darrel Madrid am, CT on 2022 at 11:19 AM ----- ----- ----- ----- ----- ----- ----- ----- ----- ----- ----- ----- ----- ----- ----- ----- ----- ---- HPV RESUL TS: HPV mRNA E6/E7 : No HPV mRNA Detec vasiliy NOTE: This high risk HPV mRNA assay detec ts fourt een high- risk HPV types (16, 18, 31, 33, 35, 39, 45, 51, 52, 56, 58, 59, 66, 68) witho ut diffe renti ation . COMME NT: This speci men was revie wed by a Cytot echno logis t and/o r Patho logis t (as indic ated in this repor t) after evalu ation using the Thinp rep Imagi ng Syste m. CLINI SHIRA INFOR MATIO N: Menst rual Statu s: LMP (if appli cable ): Clini shira Histo ry/Pr eviou s Pap: Type of Neopl darien (if appli cable ): Signi fican t Clini shira Findi ngs: Other Histo ry: Hormo unique (if appli cable ): PAP EDUCA BROOKE L NOTE: The Pap Test is a scree mian test with an inher ent false negat kenney rate. Liqui d-bas ed sampl ing may decre ase, but will not elimi alfredito, false negat kenney resul ts. A negat kenney resul t does not precl ude the prese nce and/o r devel opmen t of disea se, since the prese nce of abnor mal cells in the sampl e depen ds on the locat ion of the lesio n and sampl ing techn ique. Krunal nued regul ar scree mian is the best metho d of cance r preve ntion . If repor vasiliy cytol ogic findi ng do not corre late with physi shira and/o r histo rical findi ngs, furth er inves tigat ion is recom agustín d, as clini marimar butts nted. Not Available [facility] (Lab) [address], [place], [address], 06/11/2023 14:34:57 03/09/20 25 03/09/2025 LIPID PANEL ,AMA (LDL- CALC) total cholesterol 170 mg/dL 0-199 Not Available [facility] (Lab) [address], [place], [address], 03/10/2025 04:52:18 03/09/2003/09/2025 LIPID PANEL ,AMA (LDL- CALC) triglyceride s 53 mg/dL 0-150 NCEP Refer ence Value s for Trigl yceri julissa: Sylwia l: <150 mg/dL Borde rline High: 150 - 199 mg/dL High: 200 - 499 mg/dL Very High: >/= 500 mg/dL Not Available [facility] (Lab) [address], [place], [address], 03/10/2025 04:52:18 03/09/2003/09/2025 LIPID PANEL ,AMA (LDL- CALC) HDL cholesterol 69 mg/dL >40 Not Available [facility] (Lab) [address], [place], [address], 03/10/2025 04:52:18 03/09/20 25 03/09/2025 LIPID PANEL ,AMA (LDL- CALC) LDL cholesterol 87 mg/dL 0-99 Cutof f value s recom agustín d by the Natio nal Agueda stero l Educa tion Progr am: LIBORIO ABLE: Agueda stero l <200 mg/dL LDL <100 mg/dL BORDE RLINE : Agueda stero l 200-2 39 mg/dL LDL 101-1 59 mg/dL HIGHE R RISK: Agueda stero l >240 mg/dL LDL >160 mg/dL , HDL <40 mg/dL Not Available [facility] (Lab) [address], [place], [address], 03/10/2025 04:52:18 03/09/2003/09/2025 LIPID PANEL ,AMA (LDL- CALC) non-HDL cholesterol 101 mg/dL no refere nce range A reaso nable goal for non-H DL agueda stero l is one that is 30 mg/dL highe r than the LDL agueda stero l goal. Not Available [facility] (Lab) [address], [place], [address], 03/10/2025 04:52:18 03/09/2003/09/2025 LIPID PANEL ,AMA (LDL- CALC) chol/HDL ratio 2.5 . 0.0-5. 0 On March 20, 2023, [facility] labor atori melisa clemons ed the equat ion for calcu rosalind g estim ated low-d ensit y lipop rotei n-cho leste rol (LDL- C) from the Fried christine equat ion to the Ana n/Hop kins equat ion. This new equat ion is only valid for lipid panel s with trigl yceri julissa < 400 mg/dL . Studi es have demon strat ed that this new equat ion will impro ve the accur acy of LDL-C , espec ially in scena bar when LDL-C veena ntrat ions are relat ively low (< 100 mg/dL ), trigl yceri julissa are eleva vasiliy, or patie nt is non-f astin g. Refer ences : - Ana lugo, Fabian Rutherford, Jc Rahamn , [facility] allison wilcox, Buster Gonzalez, Thomas Santiago. Kodi samaniego , and Spenser Shea . 2013. Comp ariso n of a Novel Metho d vs the Fried christine Equat ion for Estim ating Low-D ensit y Lipop rotei n Agueda stero l Level s from the Stand sun Lipid Profi le. MONY: The Journ al of the Ameri can Medic al Assoc iatio n 310 (19): 2060- . - Paulo peralta V, Natalie J, Mary ar A, Marcela M, Stephany e R, Sully peralta E, Kodi [facility] RS, Shabbir SR, Ana lugo SS. Fast ing Versu s Nonfa sting and Low-D ensit y Lipop rotei n Agueda stero l Accur acy. Circu latio n. 2017Nov 27;137 (1):1 0-19. Not Available [facility] (Lab) [address], [place], [address], 03/10/2025 04:52:18 03/09/20 25 03/09/2025 TSH, REFLE X FREE T4 TSH 3.62 uIU/m L 0.30-5 .33 Not Available [facility] (Lab) [address], [place], [address], 03/10/2025 04:52:19 03/09/20 25 03/09/2025 VITAM IN D, 25-OH (TOTA L D2/D3 ) vitamin D, 25-hydroxy, total 24.0 NG/mL 30.0-1 00.0 low Sugge stive of Defic iency : <20 ng/mL Sugge stive of Insuf ficie ncy: 20-29 ng/mL Sugge stive of Suffi cienc y: 30-10 0 ng/mL Sugge stive of Toxic ity: >150 ng/mL Not Available [facility] (Lab) [address], [place], [address], 03/10/2025 04:52:19 03/09/20 25 03/09/2025 HEMOG LOBIN A1C hemoglobin A1C 5.5 % 4.0-5. 6 The Ameri can Diabe ramón Assoc iatio n recom mends that a prima ry goal of thera py shoul d be a HBA1C of < 7% and that physi cians shoul d reeva luate the treat ment regim en in patie nts with HBA1C value s consi stent ly > 8%. <5.7% Sylwia l 5.7 - 6.4% Incre ased risk for diabe ramón >=6.5 % Diagn ostic of diabe ramón <7.0% Goal of thera py >8.0% Actio n sugge sted Not Available [facility] (Lab) [address], [place], [address], 03/10/2025 04:52:19 04/14/20 21 MAMMO , scree mian, bilat eral No observ ation record ed. ANTONIO Not Available 2020 18:08:31 04/14/20 21 DEXA No observ ation record ed. ANTONIO Not Available 2020 18:08:31 Result Notes None recorded. Problems Name Problem SNOMED Code Status Onset Date Resolution Date Notes Provider Name and Address Organization Details Recorded Time Evaluati on finding 184006805 Completed 201802/28/2021 Oth abn and inconclu sive findings on dx imaging of breast;R ecorded Elsewher e: No [facility]: EHR Aerial Sprayer dwayne: N Elayne ce ID: 0001 Glenn lable Time: 03:46:23 PM Sun Pinedo MD [address], [place], [address], [facility] 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 [address] 16:06:[address] Concept Completed 201802/28/2021 Encntr for general adult medical exam w/o abnormal findings ;Recorde d Elsewher e: No [facility]: EHR Aerial Sprayer dwayne: N Elayne ce ID: 0001 Glenn lable Time: 08:45:00 AM Sun Pinedo MD [address], [place], [address], [facility] 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 16:06:27 White blood cell number - finding [id number] Completed 201802/28/2021 Leukopen ia;Recor ded Elsewher e: No [facility]: EHR Aerial Sprayer dwayne: N Practi ce ID: 0001 Glenn lable Time: 01:00:00 PM Sun Pinedo MD [address], [place], [address], [facility] 16:06:33 History of malignan t neoplasm of breast [id number] Active 2018 right, lumpecto my Sun Pinedo MD [address], [place], [address], [facility] 16:07:35 Problem Notes None recorded. Procedures Surgical History Date Name Laterality Status Provider Name and Address Organization Details Recorded Time 06/08/20 23 Date of Last Pap Smear completed [facility] 03/09/2025 09:25:45 04/14/20 23 Date of Last Mammogram completed [facility] 03/09/2025 09:27:34 06/26/20 19 lumpectomy of right breast completed [facility] 02/28/2021 15:54:27 04/02/20 19 biopsy of breast completed [facility] 02/28/2021 15:54:13 11/26/19 19 colonoscopy completed [facility] 02/10/2021 17:27:42 11/26/19 17 colonoscopy completed [facility] 02/10/2021 17:28:02 11/26/18 80 appendectomy completed [facility] 02/10/2021 17:28:15 Imaging Results None recorded. Procedure Notes None recorded. Medical Equipment None Reported. Allergies No known drug allergies Medications Name Sig Start Date Stop Date Status Note LastModified by Organization Details LastModified Time amoxicill in 500 mg capsule TAKE ONE CAPSULE BY MOUTH THREE TIMES DAILY UNTIL ALL TAKEN 06/08 completed Not Available Not Available Not Available clindamyc in HCl 150 mg capsule TAKE ONE CAPSULE BY MOUTH EVERY 6 HOURS 06/08 completed Not Available Not Available Not Available amoxicill in 875 mg tablet TAKE 1 TABLET BY MOUTH 2 TIMES DAILY FOR 7 DAYS. 03/09 completed Not Available Not Available Not Available cephalexi n 500 mg capsule TAKE ONE CAPSULE BY MOUTH TWICE DAILY FOR 7 DAYS 06/05 completed Not Available Not Available Not Available oxybutyni n chloride ER 5 mg tablet,ex tended release 24 hr 06/05 completed Not Available Not Available Not Available ergocalci ferol (vitamin D2) 1,250 mcg (50,000 unit) capsule TAKE 1 CAPSULE BY MOUTH EVERY WEEK active Not Available Not Available No t Available fluticaso ne propionat e 50 mcg/actua tion nasal spray,nickie pension SPRAY 2 SPRAYS INTO EACH NOSTRIL EVERY DAY 03/09 completed Not Available Not Available Not Available amoxicill in 875 mg-potass ium clavulana te 125 mg tablet 06/08 completed Not Available Not Available Not Available biotin active Not Available Not Availa ble Not Available Low Dose Aspirin active Not Available Not Available Not Available Vitamin D3 10 mcg (400 unit) capsule 06/08 completed Prescrib ed Joshua e: Yes Loca tion: [facility] Kayla odify By: jeanne jolly DateTime : 02/12/20 08:45:00 AM Not Available Not Available Not Available Probiotic 10 billion cell capsule 06/08 completed Prescrib ed Elsewher e: Yes Loca tion: [facility] M odify By: jeanne jolly DateTime : 02/12/20 08:45:00 AM Not Available Not Available Not Available sodium,po tassium,m ag sulfates 17.5 gram-3.13 gram-1.6 gram oral soln TAKE 177MLS BY MOUTH EVERY 12 HOURS FOR 1 DAY. 03/09 completed Not Available Not Available Not Available L-Methylf olate 06/08 completed Not Available Not Available Not Available Multi Vitamin active Not Available Not Available Not Available Vitamin B-12 1,000 mcg/mL oral drops 06/08 completed Prescrib ed Elsewher e: Yes Loca tion: [facility] M odify By: jeanne jolly DateTime : 02/12/20 08:45:00 AM Not Available Not Available Not Available Vitals Date Recorded Body height Body mass index (BMI) Body weight Systolic blood pressure Diastolic blood pressure Systolic blood pressure Diastolic blood pressure Provider Name and Address Organization Details Last Updated DateTime 1 157.48 cm 44.4 kg/m2 589104. 95 g 143 mm[Hg] 77 mm[Hg] 140 mm[Hg] 88 mm[Hg] Celia Moe [facility] 1 15:53:25 Date Recorded Body height Body mass index (BMI) Body weight Systolic blood pressure Diastolic blood pressure Provider Name and Address Organization Details Last Updated DateTime 03/09/2025 157.48 cm 41.2 kg/m2 805502.2 8 g 154 mm[Hg] 77 mm[Hg] Oly Perkinsney [facility] 5 09:24:02 Date Recorded Body height Body mass index (BMI) Body weight Systolic blood pressure Diastolic blood pressure Systolic blood pressure Diastolic blood pressure Provider Name and Address Organization Details Last Updated DateTime 2 157.48 cm 39.7 kg/m2 92763.5 4 g 152 mm[Hg] 76 mm[Hg] 150 mm[Hg] 81 mm[Hg] Fauzia Perla [facility] 09:50:07 Date Recorded Body weight Systolic blood pressure Diastolic blood pressure Provider Name and Address Organization Details Last Updated DateTime 06/08/2023 47366.77 g 110 mm[Hg] 71 mm[Hg] Dari Voss [facility] 06/08/2023 12:24:33 Social History Question Answer Notes LastModified by Organizat ion Details LastModified Time Tobacco Smoking Status Never Smoker Dari Voss null, [facility] 06/08/2023 12:24:41 Do You Have An Advance Directive? Yes Information n ot available 06/05/2022 How Many Years Have You Consumed Alcohol? 13 [email or web address] Information not available 03/09/2025 Are You Blind Or Do You Have Difficulty Seeing? No Information n ot available 06/05/2022 What Is Your Level Of Caffeine Consumption? Moderate Information not available 06/05/2022 How Much Tobacco Do You Chew? None Information not available 06/05/2022 In The 14 Days Before Symptom Onset, Have You Had Close Contact With A Laboratory-confirm ed COVID-19 While That Case Was Ill? No Information n ot available 06/05/2022 In The 14 Days Before Symptom Onset, Have You Had Close Contact With A Person Who Is Under Investigation For COVID-19 While That Person Was Ill? No Information not available 06/05/2022 Have You Been To An Area Known To Be High Risk For COVID-19? No Information not available 06/05/2022 Are You Deaf Or Do You Have Serious Difficulty Hearing? No Information not available 06/05/2022 What Type Of Diet Are You Following? REGULAR Information n ot available 06/05/2022 What Is The Highest Grade Or Level Of School You Have Completed Or The Highest Degree You Have Received? [id number] Information not available 06/05/2022 Are There Any Guns Present In Your Home? No Information not available 06/05/2022 Do You Use Protection During Sex? Always Information not available 06/05/2022 Do You Use Your Seat Belt Or Car Seat Routinely? Yes Information not available 06/05/2022 Do You Have Smoke And Carbon Monoxide Detectors In Your Home? Yes Information not available 06/05/2022 How Much Tobacco Do You Smoke? No Information not available 06/05/2022 Do You Use Sunscreen Routinely? Yes Information not available 06/08/2023 Have You Used IV Drugs? No Information not available 06/05/2022 Sex: Unknown Functional Status Question Answer Note LastModified by Organizat ion Details LastModified Time Do you use any illicit or recreational drugs? No [email or web address] Information not available 02/28/2021 What is your level of alcohol consumption? Occasional Information not available 06/05/2022 Are you able to walk? YESWOREST Information not available 06/05/2022 What is your occupation? Retired Information not available 06/05/2022 What is your exercise level? Moderate Information not available 06/05/2022 Mental Status Question Answer Note LastModified by Organization D etails LastModified Time Do you feel stressed (tense, restless, nervous, or anxious, or unable to sleep at night)? [id number] Information not available 06/05/2022 Family History Relationship Description Onset Age of this Age Resolved Age Notes LastModified by Organization Details LastModified Time Father Diabetes mellitus Not available 2021 09:30:19 Father Malignant neoplasm of lung Not available 2021 09:30:51 Mother Malignant tumor of breast Not available 2021 09:30:30 Medical History Condition Response Allergies (Food, seasonal, environmental ) N Other N Breast Cancer Y Drug/Latex Allergies/Reactions N Blood Transfusion N Dermatologic Disorders N Lung Disease N Defects or Inherited Disease N Breast Problem N Gestational Diabetes N Hematologic disorders N Anesthesia Complications N History of STI N Deep Vein Thrombosis N Polycystic ovary syndrome N Anxiety Disorder N Autoimmune disease N Arthritis N Infertility N Polyps N Acid Reflux (GERD) N History of abnormal pap N Cancer N Stroke N Varicosities N Neurologic/Epilepsy N Endometriosis N High Cholesterol N Headaches N Fibromyalgia N Kidney Disease N Heart Problems N Kidney or Bladder Problems N Thyroid Problems N GI Problems N Eating Disorder N Anemia N Art (IVF or FET) N Psychiatric Illness N Ovarian Cancer N Diabetes N Pulmonary (TB, Asthma) N Hepatitis/Liver Disease N No Past Medical History N Eczema N Urinary Tract Infection N Abuse/Domestic Violence N Asthma N Trauma/Violence N Depression/ depression N Heart Disease N Pre-Eclampsia N Hypertension N Osteoporosis N Thrombophilias N Gynecological History Statement/Question Response Abnormal Pap N Date of Last Mammogram 04/14/2023 STIs/STDs N HPV Vaccine N Current Control Method Menopause If Post Menopausal, Age at Menopause 50 Date of Last Colonoscopy Sexually Active? N Menses Monthly N Date of DEXA bone scan 04/14/2021 Age of first menstrual cycle 10 Date of Last Pap Smear 06/08/2023 Sexual Problems? N LMP Unknown N Obstetrics History GPAL:G 2 P 2 0 0 2 Type Value Full Term 2 Living 2 Total 2 Past Encounters Encounter ID Performer Location Encounter Start Date Encounter Closed Date Diagnosis/Indication Diagnosis SNOMED-CT Code Diagnosis ICD10 Code Diagnosis Note [id number] Sun Pinedo MD [facility] [address] [address] 02/28/2021 15:42:04 02/28/2021 16:57:16 Gynecologic examination 70275835 Z01.419 [id number] Master Lambert MD [facility] [address] [address] 06/05/2022 09:15:38 06/05/2022 14:02:48 Gynecologic examination 18295529 Z01.419 Annual gynecologi shira exam performed. Patient will come back in a year unless there are new symptoms. Suggest Calcium with Vitamin D if not eating in diet. Patient advised to get annual flu shot. Recommend yearly physicals and preform monthly breast exams. Genetic testing is available for patients with family history of cancer. Engage in safe sexual practices, use condoms. Encouraged to have daily exercise. Avoid tobacco and illicit drugs, moderation of alcohol. If BMI greater than 25 dietary consult advised. If you have any questions please call or email. Mammogram - done Colonoscop y - done Bone Density - na Cholestero l - donre Pap - today [id number] [facility] [address] [address] 06/08/2023 11:52:14 06/08/2023 13:27:11 Gynecologic examination [id number] Z01.419 Take Calcium with Vitamin D 12-1500mg daily. Do monthly self breast exams. It is advised to get annual flu shot in the fall and she could obtain at [facility] or [facility]. If you haven't received the Tdap vaccine in the last 10 years you should obtain one as well. Have mammogram yearly, bone density every 2-3 years and colonoscop y every 5-10 years depending on findings and history. Engage in daily exercise of low impact aerobic exercise 45-60 minutes 4-5 times weekly. Avoid tobacco and illicit drugs as well as using moderation with alcohol intake less than 1-2 8 oz beverages daily. This lifestyle behavior pattern will lead to less health conditions and longer life span. If BMI greater than 25 weight watchers or dietary consult advised. Questions have been answered. Patient appears to understand instructio ns, but if you have any further questions call or respond to this email Pap/hpv sentHx breast cancerSTD Screen declined, just got a year ago.Geneti c Screen discussed, done elsewhereC olon Screen UTD PCPDexa Screen UTD Onc GYNRoutine Labs UTD PCPMammo- [id number] Nikole Garcia [facility] [address] [address] 03/09/2025 08:54:26 03/09/2025 12:37:28 Gynecologic examination [id number] Z01.419 WWEpostmen opausalPap - no further paps indicatedS TI screen - declined/ Not currently SAMammogra m - UTD/oncolo gyColon cancer screening - UTDDexa - orderedRou lucy labs - orderedBP precaution s discussed, encouraged PCP f/uRTC in 1 yr or sooner if needed Do monthly self breast exams.It is advised to get annual flu shot in the fall and she could obtain at local pharmacy. If you haven't received the Tdap vaccine in the last 10 years you should obtain one as well.Have mammogram yearly, bone density every 2-3 years and stay up to date on colon cancer screening. Engage in regular exercise. Avoid tobacco and illicit drugs. This lifestyle behavior pattern will lead to less health conditions and longer life span. If BMI greater than 25 dietary consult advised.Qu estions have been answered. Adult heal th examination [id number] Z00.00 pt request these specific labs to be orderedhas f/u with PCP soon Screening for osteoporosis [id number] Z13.820 Health Concerns Section Related Observation LastModified by Organization Detai ls LastModified Time None Recorded Concern Status LastModified by Organization Details LastModified Time None Recorded Advance Directives Directive Y: Payers Insurance Date Sequence Insurance Name Policy Number Policy Lopez Covered Member ID Lopez Member ID Guarantor Name 03/09/2025 1 [facility] (MEDICARE REPLACEMENT/A DVANTAGE - HMO) [id number] Concha Fauzia Grider [id number] Conchaamber Grider 03/09/2025 1 [facility] () [id number] Concha Prince [id number] Concha Grider Notes Date Note Type Note Provider Name and Address Organization Details Recorded Time 02/28/2021 text/html Patient is a 60y o who presents for an annual exam. history of breast cancer 2019 with right lumpectomy and radiation. last pap-01/2019 [facility] mammo-[facility], last year colonoscopy-2019- 5 years for polyps dexa-5 years menopause-50 sexually active-no seatbelts-yes exercise-yes depression-denies domestic violence-denies tobacco-no concerns-urinary urgency, frequency and some leaking for 2 mos. no stress incontinence. Sun Pinedo MD [address], [place], [address], [facility] 03/07/2021 09:36:58 06/05/2022 text/html Annual GYNReport ed bypatient.History:no gynecologic complaints Urinary symptoms:No hematuria;Urge incontinence Vulva:Painless genital lesion Vagina:Normal vaginal discharge Breast:No breast pain; No breast lump Menopausal Symptoms:No menopausal symptoms; Normal vaginal lubrication Psychological symptoms:No depression; No anxiety Preventive measures:Encourage self breast examination; Encourage regular exercise Master Lambert MD [address], [place], [address], [facility] 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 Post-MenopausalRepor vasiliy bypatient.Menopausal Symptoms:no menopausal symptoms; normal vaginal lubrication Vaginal Bleeding:history of menopause having occurred; no history of post menopausal bleeding Urinary Symptoms:no hematuria; no incontinence; no nocturia; no urinary frequency Vulva:no genital lesion; no vulvar atrophy Vagina:normal vaginal discharge; no vaginal atrophy Breast:no breast lump; no nipple discharge; no breast pain Sexual Complaints:no sexual complaints Psychological Symptoms:no depression; no anxiety Preventive Measures:encourage regular mammograms starting age 40; encourage self breast examination; encourage regular exercise; encourage no tobacco use; mammogram performed within the past year (ONologist); history of recent colonoscopy DARIUSZ Rodarte- [address], [place], [address], [facility] 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 vasiliy bypatient.Menopausal Symptoms:no menopausal symptoms; normal vaginal lubrication Vaginal Bleeding:history of menopause having occurred; no history of post menopausal bleeding Urinary Symptoms:no hematuria; no incontinence; no nocturia; no urinary frequency Vulva:no genital lesion; no vulvar atrophy Vagina:normal vaginal discharge; no vaginal atrophy Breast:no breast lump; no nipple discharge; no breast pain Sexual Complaints:no sexual complaints Psychological Symptoms:no depression; no anxiety Preventive Measures:encourage regular mammograms starting age 40; encourage self breast examination; encourage regular exercise; encourage no tobacco useNotes:64yo wwepostmenopausal, denies any PMBlast pap 05/2023 : nilm, HPV (-)no h/o abnormal papsh/o Right DCIS 2018, had lumpectomy and radiation. Follows with oncology, mammogram coming updexa last 2020 [place]nlcolonoscopy [place] Not currently [place], [place] [facility] [place] has new 4 month old grand baby Nikole Garcia, DARIUSZ [address], [place], [address], [facility] 03/09/2025 12:28:51 OBGyn Episode Ob Episode Information Episode Created Date Number of Fetuses Patient Bloodtype Patient rh Status Prepregnancy Weight lbs Domestic Partner Domestic Partner Phone Father Name Shearer Operator Status 02/11/20 21 1 CLOSED Fetus Data First Name Last Name Admitted to NICU Weight (g) Sex Living Outcome Pediatric Complications Fetus ID Race Codes Race Delivery Type [phone] F [id number] Vaginal Delivery Deonte Calculation Initial Deonte Date Initial Exam Date Initial Exam Provider Initial Ultrasound Date Last Menstrual Period Date Ultra Sound Weeks Gestation 0 Eighteen To Twenty Week Deonte Update Ultra Sound Date Fundal Height At Umbil Quickening Date Ultra Sound Latest Weeks Gestation Final Deonte Confirmed By Final Deonte Confirmed Date Final Deonte Date Ultra Sound Latest Days Gestation 0 0 Menstrual History Last Menstrual Date Menses Monthly On Bcp Conception Prior Menses Frequency Hcg Plus Date Menarche Onset Age Delivery Information Delivery Date Delivery Type Labor Anesthesia Weeks Gestation Incision Type Labor Labor Length Hrs Delivered By Post Complications Tubal Sterilization Discharge Date Comments 5 Discharge Information Feeding Method Contraceptive Method Maternal HG B and HCT Levels Ob Episode Information Episode Created Date Number of Fetuses Patient Bloodtype Patient rh Status Prepregnancy Weight lbs Domestic Partner Domestic Partner Phone Father Name Shearer Operator Status 02/11/20 21 1 CLOSED Fetus Data First Name Last Name Admitted to NICU Weight (g) Sex Living Outcome Pediatric Complications Fetus ID Race Codes Race Delivery Type [phone] [id number] Vaginal Delivery Deonte Calculation Initial Deonte Date Initial Exam Date Initial Exam Provider Initial Ultrasound Date Last Menstrual Period Date Ultra Sound Weeks Gestation 0 Eighteen To Twenty Week Deonte Update Ultra Sound Date Fundal Height At Umbil Quickening Date Ultra Sound Latest Weeks Gestation Final Deonte Confirmed By Final Deonte Confirmed Date Final Deonte Date Ultra Sound Latest Days Gestation 0 0 Menstrual History Last Menstrual Date Menses Monthly On Bcp Conception Prior Menses Frequency Hcg Plus Date Menarche Onset Age Delivery Information Delivery Date Delivery Type Labor Anesthesia Weeks Gestation Incision Type Labor Labor Length Hrs Delivered By Post Complications Tubal Sterilization Discharge Date Comments 0 Discharge Information Feeding Method Contraceptive Method Maternal HG B and HCT Levels
== END 2025-05-14 12:15 | disposition home or self-care (01) ==
PROVIDERS: PCP Nurse Practitioner; Visit Provider Nurse Practitioner
DX: Z78.0 Asymptomatic menopausal state (principal)
CPT/HCPCS: 77080